=== PATIENT | female | born 1970 | race Caucasian/White ===

== ENCOUNTER 2023-10-01 16:00 | Outpatient (CLI) | payer OTHER | END 2023-10-01 16:01 | disposition home or self-care (01) | LOC: SLEEPLAB 16:00 | PROVIDERS: ATTEND Nurse Practitioner Family | DX: G47.33 Obstructive sleep apnea (adult) (pediatric) (principal); E66.9 Obesity, unspecified; R51.9 Headache, unspecified; R06.83 Snoring; R53.83 Other fatigue; R09.89 Other specified symptoms and signs involving the circulatory and respiratory systems | CPT/HCPCS: 95800 ==